=== PATIENT | male | born 2000 | race Caucasian/White ===

== ENCOUNTER 2025-04-04 17:00 | Emergency (ER) | payer MEDICAID, OTHER ==
[~2025-04-04] VITALS: Ht 185.4 cm; Wt 63.6 kg
[2025-04-04 17:07] VITALS: BP 116/71; PULSE 103; RESP 18; TEMP 98.2; O2SAT 99
--- NOTE | 2025-04-04 17:22 | Physician Documentation ---
History of Present Illness ~ Chief Complaint: Flu Symptoms Stated Complaint: "BLOOD CLOT IN SINUS" Time Seen by MD: 17:20 Primary Medical Doctor: [facility] Patient presents with cold cough and congestion x1 day with increasing severity. He has any fever but reports feeling hot and sweaty at times. Denies any history of asthma denies any shortness of breath. He is otherwise healthy. Day of Onset: Apr 04, 2025 Medication Reconciliation Allergies: Coded Allergies: No Known Allergies (Unverified , 02/16/10) Past Medical History Alcohol Use: None Drug Use: none Review of Systems All Other Systems at this time: Reviewed and Negative ROS As stated above in the HPI, otherwise all systems are reviewed and negative. Physical Exam Vital Signs: Temperature: 98.2, Source: Temporal, Heart Rate: 103, Respiratory Rate: 18, BP: 116/71, Pulse Oximetry: 99, Weight: 63.640 Physical Exam General: Alert, no apparent distress. Respiratory: Lungs clear, no respiratory distress. Cardiovascular: Regular rate and rhythm, no murmurs. Neurologic: Oriented x4. Psychiatric: Normal mood and affect. Skin: Normal color, warm and dry. No edema, no ecchymosis. Progress Results/Orders Results/Orders Orders - SALVADOR PETERSON [employer]INGER[employer]IL SCULPTOR Covid19 Binax Poc Result Entry (04/04/25 17:22) Vital Signs 04/04/25 17:07 Temp 98.2 Pulse 103 Resp 18 B/P (MAP) 116/71 Pulse Ox 99 Laboratory Tests Test 04/04/25 17:25 SARS-CoV-2 Antigen (Rapid) Negative Medical Decision Making Findings Patient does not present as though he is acutely ill other than mild URI symptoms. He is COVID negative. This time I am going to discharge him with [facility] care instructions and to return if he has any worsening symptoms. Differential Dx:Considerations: Include: Allergic rhinitis, Influenza, Otitis media, Peritonsillar abscess, Pharyngitis-Diphtheria, Pharyngitis-Streptoccal, Pharyngitis-Viral, Pneumonia, Pnuemonitis, Sinusitis, URI, Other Departure Disposition: HOME / SELF CARE / HOMELESS Impression: Primary Impression: Viral infection Condition: Stable Discharge Instructions: Viral Illness, Influenza, Adult Additional Instructions: Drink fluids take ibuprofen alternating with Tylenol until you no longer has a fever Referrals: NO PRIMARY CARE PROVIDER (PCP) Signature Scribe Signature: t Attestation: Scribed for Salvador Peterson [employer] by Salvador Enriquez NP . 04/04/25 18:10 SALVADOR PETERSON NP Apr 04, 2025 17:22
== END 2025-04-04 18:13 | disposition home or self-care (01) ==
LOC: ER 17:00
DX: B34.9 Viral infection, unspecified (principal); Z20.822 Contact with and (suspected) exposure to COVID-19
CPT/HCPCS: 36415; 87811; 99283